=== PATIENT | male | born 1990 | race Caucasian/White ===

== ENCOUNTER 2019-09-01 09:05 | Emergency (ER) | payer OTHER, SELFPAY ==
[2019-09-01] MEDS ORDERED: Lidocaine 1% (PF) 30 ML VIAL ONE (09:23)
[2019-09-01] MEDS ORDERED: Bacitracin 1 PK ONE (09:24)
== END 2019-09-01 10:35 | disposition home or self-care (01) ==
LOC: ERS 09:05
DX: S61.012A Laceration without foreign body of left thumb without damage to nail, initial encounter (principal); W45.8XXA Other foreign body or object entering through skin, initial encounter; Y92.69 Other specified industrial and construction area as the place of occurrence of the external cause
CPT/HCPCS: 12001; J2001